=== PATIENT | female | born 1985 | race Hispanic/Latino ===

== ENCOUNTER 2016-12-07 02:29 | Emergency (ER) | payer OTHER ==
[~2016-12-07] VITALS: Ht 160 cm; Wt 138.2 kg
[~2016-12-07 02:29] MED LIST: IBUP-1149 PO; PREN1TAB47 PO
[2016-12-07 02:35] VITALS: BP 129/77; PULSE 107; RESP 16; O2SAT 94
--- NOTE | 2016-12-07 02:47 | ED.REPORT ---
HPI-Sore Throat ONLY HPI/PE done Dec 07, 2016 ED Provider: Dr. Todd Puentes M.D. The patient is a 31 year old female with a remote history of H. Pylori who presents to the ED with a sore throat onset two days ago. Associated symptoms include throat swelling and shortness of breath. The patient was placed on antibiotics today for a "throat infection." She denies other symptoms at this time. Nursing Notes Stated Complaint: POSS THROAT INFECTION,CANNOT BREATHE Chief Complaint: Respiratory Complaints Nursing Notes Reviewed: Yes Allergies: Coded Allergies: No Known Allergies (Verified , 06/13/04) Scheduled Amoxicillin/Clav K 875-125 mg (Augmentin 875-125 mg) 1 Each Tablet 1 TABLET PO BID IBUPROFEN-Expunged Drug, Do Not Renew! (IBUPROFEN-Expunged Drug, Do Not Renew!) 600 Mg Tablet 600 MG PO Q6HP FOR FEVER OR PAIN Prednisone (PredniSONE) 20 Mg Tablet 20 MG PO DAILY Vit/Fe Fumarate/Fa-Expunged Drug, Do (-Expunged Drug, Do Not Renew!) 1 Tab Tablet 1 TAB PO DAILY General Time Seen by MD: 02:46 Chief Complaint Sore throat Hx Obtained From: Patient Arrived By: Walk-in Onset Occurred: 2 days ago Symptom Duration: Since onset Location: : Tonsil left: Tonsil right Quality: Painful Severity: Current: Moderate Severity: Maximum: Moderate Pertinent Negative: Relieved by nothing Context: Immunization Status Immunizations Up to Date: Tetanus Recent Healthcare: Recent doctor visit Past Medical History Past Medical History History of H. pylori - treated Fatty liver Allergic rhinitis Chlamydia Past Surgical History none reported Family History asthma Smoking History Current Every Day Smoker Social History Other Social History: Good social support, Lives with children, Local resident Ambulatory Status Independent Review of Systems Constitutional: Denies: Fever Ears / Nose / Throat: Reports: Sore throat, Throat swelling Respiratory: Reports: Shortness of breath, Denies: Non-productive cough GI: Denies: Diarrhea, Vomiting Complete sys rev & neg: except as marked. Physical Exam Initial Vital Signs Vital Signs (First) Date Time Temp Pulse Resp B/P Pulse Ox O2 Delivery O2 Flow Rate FiO2 12/07/16 02:35 37.0 107 16 129/77 94 Room Air Initial VS: Reviewed, Vital signs abnormal Head / Eyes: Atraumatic, Normocephalic Respiratory: No respiratory distress Skin: Warm, Dry, No cyanosis Neurologic: Alert, Oriented, Nonfocal Psychiatric: Mood/affect normal, Behavior normal, Normal thought content General/Constitutional: Awake, Alert ENT: Airway patent, Mucous membranes moist Pharynx / Tonsils / Uvula: Positive: Tonsillar swelling L (+4), Tonsillar swelling R (+4), Negative: Uvula enlarged No tracheal deviation Hot potato voice Neck: Supple, Full range of motion Interpretation & Diagnostics Lab Results Interpretation Result Diagram: 12/07/16 0250 12/07/16 0250 Test 12/07/16 02:50 White Blood Count 18.8th/mm3 (3.8-10.1) Red Blood Count 4.46mil/mm3 (3.90-5.20) Hemoglobin 13.2g/dL (12.0-15.6) Hematocrit 39.5% (35.0-46.0) Mean Corpuscular Volume 88.6fL (81-100) Mean Corpuscular Hemoglobin 29.6pg (27.0-35.0) Mean Corpuscular Hemoglobin Concent 33.4% (32.0-37.0) Red Cell Distribution Width 13.2% (12.3-15.4) Platelet Count 314bil/L (150-400) Neutrophils (%) (Auto) 83.0% (40-74) Lymphocytes (%) (Auto) 9.0% (14-46) Monocytes (%) (Auto) 6.7% (4-12) Eosinophils (%) (Auto) 0.8% (0-5) Basophils (%) (Auto) 0.2% (0-3) Sodium Level 137mEq/L (134-144) Potassium Level 3.8mEq/L (3.5-5.2) Chloride Level 97mEq/L (97-108) Carbon Dioxide Level 24mmol/L (18-29) Blood Urea Nitrogen 12mg/dL (6-20) Creatinine 0.49mg/dL (0.57-1.00) Estimat Glomerular Filtration Rate 211mL/min (>59) Glucose Level 118mg/dL (60-99) Calcium Level 9.0mg/dL (8.5-10.1) Magnesium Level 1.9mg/dL (1.6-2.6) Total Bilirubin 0.7mg/dL (0.0-1.2) Aspartate Amino Transf (AST/SGOT) 19U/L (0-50) Alanine Aminotransferase (ALT/SGPT) 22U/L (0-32) Alkaline Phosphatase 82U/L (25-150) Total Protein 8.0g/dL (6.4-8.4) Albumin 4.2g/dL (3.4-5.0) Hold Amor Top Tube Received (Received) Lab Results Interpretation: Elevated white blood count Re-Eval/Medical Decision Med Decision/Clinical Course 31-year-old female sitting seen earlier at urgent care with tonsillitis. She was given Rocephin to be followed by Augmentin. Strep test was negative. She now has increasing symptoms of pain and swelling. There is no palpable or visible abscess. She does have tonsillar swelling with the tonsillar halves meeting at the midline. She has painful swallowing but no respiratory obstruction. She was given an additional dose of IV Unasyn and Solu-Medrol. She will be discharged home to continue the Augmentin and add prednisone 20 mg by mouth 3 times a day, #15 sent. She will follow-up with her regular doctor for further evaluation and treatment. Source of Hx: Old records Re-Evaluation/Progress : Time of Eval: 04:50 Patient Status: Condition improved Re-Evaluation/Progress Note: Patient is feeling better. Discussed with patient lab results, diagnosis, and plan for discharge. Follow-up and return to the ER instructions given. Patient agrees with plan for care and all questions were addressed. Counseled Regarding: Diagnosis, Lab results, Need for follow-up, When/why to return to ED Discharge & Departure Primary Impression: Acute tonsillitis Pharyngitis/tonsillitis etiology: unspecified etiology Qualified Code: J03.90 - Acute tonsillitis, unspecified Disposition: Home Discharge Condition All VS Reviewed: Yes Condition: Improved Patient Instructions: Tonsillitis (ED) Additional Instructions: You received Zosyn IV antibiotic in the emergency room. This is to be followed by Augmentin 875(amoxicillin/clavulanate), 1 pill twice daily for 10 days, #20 prescribed. You also received Solu-Medrol IV in the emergency room, an anti- inflammatory to reduce swelling. This is to be followed by Prednisone 20 mg 3 times a day for 5 days, #15 prescribed.Tylenol and/or ibuprofen as needed for pain. Drink plenty of fluids. Follow up in the emergency room or with [facility] doctor, if you have any further problems. Call me at [phone] between the hours of 9 PM and 6 AM the next couple nights if you have any questions. Referrals: Lm Mehta MD (PCP) Scribe Attestation Portions of this note were transcribed by Sidra Briceno. I, Dr. Puentes, personally performed the history, physical exam, and medical decision-making; I reviewed and confirmed the accuracy of the information in the transcribed note. Signed by: Suleman Matthews, 12/07/2016, 05:30 copies to: Lm Mehta MD, Howard L MD Dec 07, 2016 02:47 SIDRA BRICENO Dec 07, 2016 02:54
[2016-12-07] MEDS ORDERED: 0.9% Sodium Chloride 1,000 ML IV ONE (02:51)
[2016-12-07] MEDS ORDERED: Ondansetron 2 mg/mL 2 mL Inj IV PRN (02:55)
[2016-12-07] MEDS ORDERED: Piperacillin-Tazo 3.375 Gm Inj 3.375 GM in Dextrose 5% Minibag Plus 50 ML IV ONE (02:55)
[2016-12-07] MEDS ORDERED: Ketorolac 15 mg/mL Inj IV ONE (02:55)
[2016-12-07 03:06] LABS: BASOPHILS % (AUTO) 0.2 % (0-3); EOSINOPHILS % (AUTO) 0.8 % (0-5); MONOCYTES % (AUTO) 6.7 % (4-12); Mean Corpuscular Hemoglobin 29.6 pg (27.0-35.0); Mean Corpuscular Volume 88.6 fL (81-100); Platelet Count 314 bil/L (150-400)
[2016-12-07] MEDS ORDERED: MethylprednisoLONE Sodium Succinate 62.5 mg/mL 2 mL Inj IVPUSH ONE (03:25)
[2016-12-07 03:32] LABS: Magnesium 1.9 mg/dL (1.6-2.6)
[2016-12-07] MEDS ORDERED: AMOX-366 PO (04:50)
[2016-12-07] MEDS ORDERED: PRE20 PO (04:50)
[2016-12-07 05:13] VITALS: BP 113/82; PULSE 82; RESP 18; O2SAT 96
== END 2016-12-07 05:05 | disposition home or self-care (01) ==
LOC: SED 02:29
DX: J03.90 Acute tonsillitis, unspecified (principal); F17.200 Nicotine dependence, unspecified, uncomplicated
CPT/HCPCS: 36415; 80053; 83735; 85025; 96365; 96375; 99284; J1885; J2405; J2543; J2930; J7030

== ENCOUNTER 2017-01-01 21:06 | Emergency (ER) | payer OTHER ==
[~2017-01-01] VITALS: Ht 167.6 cm; Wt 136.4 kg
[~2017-01-01 21:06] MED LIST changes: +AMOX-366 PO; +PRE20 PO
[2017-01-01 21:08] VITALS: BP 116/70; RESP 18; O2SAT 98
--- NOTE | 2017-01-01 21:58 | ED.REPORT ---
HPI-Sore Throat ONLY HPI/PE done Jan 01, 2017 ED Provider: Todd Puentes MD The pt is a 31 y/o female w/ a hx of acute tonsillitis presenting to the ED complaining of throat pain. Her symptoms also include fevers, chills, and difficulty swallowing her saliva. She had a similar episode 3 weeks ago. Nursing Notes Stated Complaint: SORE THROAT Chief Complaint: ENT & Mouth Nursing Notes Reviewed: Yes Allergies: Coded Allergies: No Known Allergies (Verified , 01/01/17) Scheduled Amoxicillin/Clav K 875-125 mg (Augmentin 875-125 mg) 1 Each Tablet 1 TABLET PO BID IBUPROFEN-Expunged Drug, Do Not Renew! (IBUPROFEN-Expunged Drug, Do Not Renew!) 600 Mg Tablet 600 MG PO Q6HP FOR FEVER OR PAIN Prednisone (PredniSONE) 20 Mg Tablet 20 MG PO DAILY Prednisone (PredniSONE) 20 Mg Tablet 20 MG PO TID Vit/Fe Fumarate/Fa-Expunged Drug, Do (-Expunged Drug, Do Not Renew!) 1 Tab Tablet 1 TAB PO DAILY General Time Seen by MD: 21:57 Chief Complaint Sore throat Hx Obtained From: Patient Arrived By: Walk-in Onset Occurred: Onset unknown Symptom Duration: Since onset Recent Healthcare: No recent hospitalization, Recent doctor visit Similar Sx Previous: Yes Past Medical History Past Medical History History of H. pylori - treated Fatty liver Allergic rhinitis Chlamydia Acute tonsillitis Past Surgical History none reported Family History asthma Smoking History Current Every Day Smoker Social History Other Social History: Good social support, Lives with children, Local resident Ambulatory Status Independent Review of Systems Constitutional: Reports: Chills, Fever Ears / Nose / Throat: Reports: Throat pain, Throat swelling GI: Reports: Dysphagia Complete sys rev & neg: except as marked. Physical Exam Initial Vital Signs Vital Signs (First) Date Time Temp Pulse Resp B/P Pulse Ox O2 Delivery O2 Flow Rate FiO2 01/01/17 21:08 37.2 112 18 116/70 98 Room Air Initial VS: Reviewed, Vital signs abnormal Head / Eyes: Atraumatic, Normocephalic, PERRL Respiratory: Breath sounds normal, Clear to auscultation, No respiratory distress Cardiovascular: Regular rate & rhythm, Heart sounds normal, Intact distal pulses Abdomen / GI: Soft, Non-tender, No guarding, No rebound, No distention Extremities: Vascular intact, Neuro intact, No swelling, No tenderness Skin: Warm, Dry, No cyanosis Neurologic: Alert, Oriented, Nonfocal Psychiatric: Mood/affect normal, Behavior normal, Normal thought content General/Constitutional: Awake, Alert, No acute distress ENT: Airway patent, Mucous membranes moist 3+ bilat tonsils symmetrically enlarged No peritonsillar abscess visible "Hot potato" voice Painful swallowing Neck: Supple, Full range of motion No midline deviation Re-Eval/Medical Decision Med Decision/Clinical Course 31-year-old female with bilateral tonsillopharyngitis. No evidence of peritonsillar abscess. Started on Augmentin and prednisone. Encourage fluids and follow up with primary doctor. Source of Hx: Old records Re-Evaluation/Progress : Time of Eval: 22:10 Re-Evaluation/Progress Note: Pt rechecked. Informed pt of plan for treatment. Pt understands and agrees with plan for treatment. F/U instructions and RTER warnings given. All questions addressed. Counseled Regarding: Diagnosis, Need for follow-up, When/why to return to ED Discharge & Departure Primary Impression: Streptococcal tonsillopharyngitis Disposition: Home Discharge Condition All VS Reviewed: Yes Condition: Stable Patient Instructions: Strep Throat (ED) Additional Instructions: Drink plenty of fluids. Ibuprofen and/or Tylenol as needed for pain. Prednisone 20 mg by mouth 3 times a day for 5 days, #15 prescribed. Amoxicillin /clavulanate (Augmentin) 875, one pill twice a day for 10 days, #20 dispensed. Follow-up with your regular doctor if symptoms persist or return to the emergency room if you have significant worsening. A call me at [phone] between the hours of 9 PM and 6 AM for the next couple nights if you have any concerns. Referrals: Lm Mehta MD (PCP) Scribe Attestation Portions of this note were transcribed by Fede England. I, Dr. Puentes personally performed the history, physical exam and medical decision-making; I reviewed and confirmed the accuracy of the information in the transcribed note. Signed by : Suleman Arevalo, 01/01/17 and [id number]. copies to: Lm Mehta MD, Howard L MD Jan 01, 2017 21:58 Fede England Jan 01, 2017 22:29
[2017-01-01] MEDS ORDERED: PRE20 PO (22:09)
[2017-01-01] MEDS ORDERED: predniSONE 20 mg Tablet PO ONE (22:10)
[2017-01-01 22:57] VITALS: BP 116/70; PULSE 112; RESP 18; O2SAT 98
[2017-01-02] MEDS ORDERED: _Amoxicillin-Clavulanate 875-125 mg Tablet PO SCH (08:30)
== END 2017-01-01 22:45 | disposition home or self-care (01) ==
LOC: SED 21:06
DX: J02.0 Streptococcal pharyngitis (principal); R50.9 Fever, unspecified; F17.200 Nicotine dependence, unspecified, uncomplicated